=== PATIENT | female | born 1975 | race Caucasian/White ===

== ENCOUNTER → 2017-05-17 | Outpatient (CLI) | payer BC ==
--- NOTE | 2017-05-18 11:50 | RADRPT ---
PROCEDURE: XR Chest PA CLINICAL INDICATION: Preop wrist fracture TECHNIQUE: A PA radiograph of the chest was submitted. COMPARISON: None. FINDINGS: Support Hardware: None Cardiovascular: The cardiovascular silhouette appears unremarkable. Lung Salazar: The lung salazar appear clear with no nodule, alveolar infiltrate, or interstitial promi nence evident. Pleural Spaces: No pneumothorax or pleural effusion is identified. Osseous Structures: There is a fracture involving the medial right clavicle with the distal fragment displaced inferiorly by a corner the bone with an minimally angulated inferiorly. Soft Tissues: The soft tissues appear unremarkable. IMPRESSION: 1. Fracture involving the medial right clavicle. 2. Otherwise, unremarkable PA chest Physician Tahira Date Time Electronically viewed and signed by Physician Tahira on 05/18/2017 11:50 /
== END | disposition home or self-care (01) ==
LOC: RAD 10:50
PROVIDERS: ATTEND Internal Medicine
DX: Z01.818 Encounter for other preprocedural examination (principal)
CPT/HCPCS: 71010